=== PATIENT | male | born 1950 | race American Indian/Alaskan Native ===

== ENCOUNTER 2016-05-05 16:36 | Inpatient (IN) | payer MEDICARE ==
--- NOTE | 2016-05-05 23:36 | Cat Scan Report ---
FINAL REPORT PROCEDURE: CT HEAD/BRAIN WO CON TECHNIQUE: Computerized tomography of the head was performed without contrast material. HISTORY: GLF COMPARISON: No prior studies are available for comparison. FINDINGS: Skull and scalp: Normal. Paranasal sinuses: Normal. Ventricles and subarachnoid spaces: There is mild age-appropriate central and cortical atrophy. There is no hydrocephalus or asymmetry.. Cerebrum: No evidence of hemorrhage, acute infarction or mass. There is an old lacunar infarct defect in the right thalamus. Cerebellum and brainstem: No evidence of hemorrhage, acute infarction or mass. There is an old lacunar infarct defect in the the socorro. Vasculature: There is calcified plaque in the cavernous portions of the internal carotid arteries.. Comments: None. IMPRESSION: There are chronic changes as described. There is no skull fracture or hemorrhage.
--- NOTE | 2016-05-06 01:29 | XRay Report ---
FINAL REPORT PROCEDURE: XR ANKLE 3 RT TECHNIQUE: RIGHT ankle radiographs, AP, lateral, and oblique views. CPT 81794 HISTORY: fall COMPARISON: No prior studies are available for comparison. FINDINGS: Fracture (s) and/or Dislocation(s): None. Alignment: Normal. Joint space(s): There is moderate degenerative arthrosis of the tibiotalar joint. The ankle mortise is intact. There has been internal fixation of the talocalcaneal joint which is fused. Hardware is intact. Soft tissues: There is diffuse vascular calcification. There is no soft tissue swelling or mass.. Bone mineralization: There is generalized osteopenia.. Foreign bodies: None. Calcaneal spurring: None. IMPRESSION: There is no fracture. There is moderate degenerative arthrosis of the tibiotalar joint. The ankle mortise is intact. There has been internal fixation of the talocalcaneal joint which is fused. Hardware is intact. There is diffuse vascular calcification. There is no soft tissue swelling or mass.. There is generalized osteopenia..
[2016-05-06 01:34] LABS: Basophils % (Auto) 0.7 % (0.0-1.8); Eosinophils % (Auto) 0.8 % (0.0-4.3); Hematocrit 28.9 % (35.5-45.6); Hemoglobin 9.5 gm/dl (11.8-15.2); Mean Corpuscular HGB Conc 33 % (32-34); Mean Corpuscular Hemoglobin 28 pg (28-32); Mean Corpuscular Volume 86 fl (84-94); Platelet Count 163 K/mm3 (140-440); Red Blood Count 3.38 M/mm3 (3.65-5.03); Red Cell Distribution Width 19.9 % (13.2-15.2); White Blood Count 3.2 K/mm3 (4.5-11.0)
[2016-05-06 01:46] LABS: BUN/Creatinine Ratio 4.54; Calcium 10.2 mg/dL (8.4-10.2); Chloride 95.7 mmol/L (98-107); Potassium 3.6 mmol/L (3.6-5.0)
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
--- NOTE | 2016-05-06 10:14 | Admit Criteria Form ---
Admission Criteria Documentation: MUSCULOSKELETAL DISEASE GRG Clinical Indications for Admission to Inpatient Care (Place 'X' for any and all applicable criteria): Hospital admission is needed for appropriate care of the patient because of ANY ONE of the following: [X ]I. Fracture, dislocation, or other musculoskeletal injury requiring inpatient care(medical) as indicated by ANY ONE of the following(4)(5)(6)(7) [ ]a) Vertebral fracture requiring observation for instability or neurologic compromise (8) [ ]b) Compartment syndrome (proven or cannot be ruled out during observation level of care) (9) [ ]c) Limb-threatening injury [ ]d) Major injury requiring inpatient stabilization such as traction initiation or external fixation before internal fixation or closure of complex or open fracture [ ]e) Major injury requiring inpatient treatment after emergency or observation level care (as appropriate) [X ]f) Severe pain requiring acute inpatient management [ ]II. Newly diagnosed or suspected bone, joint, or orthopedic device infection (e.g., osteomyelitis, septic arthritis) needing ANY ONE of the following(1)(2)(3) [ ]a) IV antibiotics that cannot be initiated in other than inpatient setting (e.g., patient too unstable or home infusion not available) [ ]b) Device removal or replacement [ ]c) Bone or soft tissue debridement [ ]d) Joint drainage (drain placement or repetitive aspirations) [ ]III. Severe rheumatologic disease (e.g., systemic lupus erythematosus, rheumatoid arthritis) with complications or comorbidities (Also use Optimal Recovery Care Criteria or General Recovery Criteria as appropriate on the basis of predominant condition), including ANY ONE of the following(10 )(11)(12)(13) [ ]a) Severe infection (e.g., COPYMAN infection, sepsis) (14) [ ]b) Respiratory complications, including ANY ONE of the following: [ ]i) Pleural effusion with respiratory compromise [ ]ii) Pulmonary hypertension with congestive failure [ ]iii) Respiratory failure [ ]iv) Pulmonary hemorrhage (15) [ ]c) Hematologic disease, including ANY ONE of the following: [ ]i) Coagulopathy with bleeding [ ]ii) Thrombosis with hypercoagulable state [ ]iii) Thrombotic thrombocytopenic purpura [ ]d) Cerebritis with seizures, psychosis, or other severe abnormalities [ ]e) Vertebral destruction with monitoring needed for cervical myelopathy& possible respiratory compromise [ ]f) Exacerbation that requires inpatient treatment (e.g., intravenous immunosuppression) (16) [ ]g) Acute renal failure [ ]IV. Severe vasculitis with complications or comorbidities (Also use Optimal Recovery Care Criteria or General Recovery Criteria as appropriate on the basis of predominant condition), including ANY ONE of the following(11)(12)(17)(18)(19)(20) [ ]a) COPYMAN vasculitis with seizures, psychosis, or other severe abnormalities (22) [ ]b) Renal failure (16) [ ]c) Pulmonary hemorrhage (15) [ ]d) Cerebral infarction [ ]e) Gastrointestinal ischemia [ ]f) Gangrene or threatened amputation [ ]g) Exacerbation that requires inpatient treatment (e.g., intravenous immunosuppression) (19)(21) [ ]V. Severe myopathy as indicated by ANY ONE of the following (28)(29) [ ]a) New onset of airway compromise or inability to swallow [ ]b) Respiratory deterioration with observation needed for impending respiratory failure [ ]c) Exacerbation that requires inpatient treatment (e.g., intravenous immunosuppression) [ ]. Severe gout (crystal arthropathy) as indicated by ANY ONE of the following (23)(24) [ ]a) Severe pain requiring acute inpatient management [ ]b) Exacerbation that requires inpatient treatment (e.g., intravenous treatment) [ ]VII.Rhabdomyolysis and ANY ONE of the following (25)(26)(27) [ ]a) Acute renal failure [ ]b) Need for intravenous hydration after emergency or observation level care (as appropriate) [ ]c) Inability to maintain oral hydration [ ]d) Change in mental status [ ]e) Electrolyte abnormality that remains after emergency or observation level care (as appropriate) [ ]VIII Post amputation complication, as indicated by ANY ONE of the following [ ]a) Infection [ ]b) Dehiscence [ ]c) Myodesis failure [ ]IX. Severe pain requiring acute inpatient management as indicated by ALL of the following (30)(31)(32) [ ]a) Continuous or frequent (e.g., every 2 to 4 hrs) parenteral analgesics required [A] [ ]b) Rapid improvement expected from treatment or acute intervention ( e.g., surgery, anesthesia procedure[B] [ ]X. Musculoskeletal Disease and ALL of the following: [ ]a) Symptom or finding for which emergency and observation care have failed or are not considered appropriate (Use General Criteria: Observation Care as appropriate) [ ]b) Presence of ANY ONE of the following [ ]i) A General Admission Criteria [ ]ii) A Pediatric General Admission Criteria The original [facility] content created by [facility] has been revised. The portions of the content which have been revised are identified through the use of italic text or in bold, and [facility] has neither reviewed nor approved the modified material. All other unmodified content is copyright [facility]. Please see references footnoted in the original [facility] edition 2016 Admission Criteria Met: Yes
--- NOTE | 2016-05-06 11:12 | Cat Scan Report ---
CT LUMBAR SPINE WITHOUT CONTRAST History: Back pain, lytic lesions. Technique: Helical CT with sagittal and coronal reformatted images. Findings: No comparison. The bony structures have a mottled and demineralized appearance. This appears to represent osteoporosis. There are scattered lytic-appearing lesions measuring just a few millimeters. This could be secondary to severe bone demineralization. Multiple myeloma could also be considered. Moderate Schmorl's nodes are noted along the superior endplates of L2, L3 and L4. There is irregularity along the anterior, inferior L2 vertebral body which overall appears chronic. This may represent a chronic or healing fracture. There is mild diffuse facet arthropathy. Although intraspinal contents is poorly evaluated on CT, no high-grade central canal stenosis or epidural process is appreciated. Impression: Osteoporosis. Degenerative findings as described above. There are scattered lucent lesions in the lumbar region. This may be secondary to severe bone demineralization and not multiple myeloma. Please correlate with the patient's history. Chronic appearing irregularity along the inferior endplate of L2. No acute process is noted.
--- NOTE | 2016-05-06 15:06 | History and Physical Report ---
History of Present Illness Date of examination: 05/06/16 Date of admission: 05/06/16 09:55 History of present illness: Patient is 66-year-old male with history of hypertension, end-stage renal disease on hemodialysis, diabetes, hyperparathyroidism, chronic back pain who presents today after falling yesterday morning going into dialysis. Patient states he walks with a cane and walker and he felt weak in his knees and his cane broke and then he fell. Patient was admitted last month at [facility] for his syncopal episodes and found to have some abnormalities and lytic lesions to his spine. Patient sent here by his staff technologist for admission and workup of his lumbar spinal lesions. Patient states he cannot take tramadol or narcotics because they give him severe constipation. Patient was on gabapentin but he states it doesn't work and he quit taking it Past History Past Medical History: diabetes, ESRD, hypertension Medications and Allergies Allergies Allergy/AdvReac Type Severity Reaction Status Date / Time amoxicillin Allergy Swelling Verified 05/05/16 17:43 Penicillins Allergy Swelling Verified 05/05/16 17:43 Review of Systems Constitutional: fatigue, weakness Exam - Constitutional Vitals: Temp Pulse Resp BP Pulse Ox 98.2 F 66 11 L 131/62 97 05/05/16 22:30 05/06/16 11:00 05/06/16 11:00 05/06/16 11:00 05/06/16 11:00 General appearance: Present: no acute distress - EENT Eyes: Present: PERRL, EOM intact ENT: hearing intact, clear oral mucosa - Neck Neck: Present: supple, normal ROM - Respiratory Respiratory: bilateral: CTA - Cardiovascular Rhythm: regular Heart Sounds: Present: S1 & S2 - Extremities Extremities: no ischemia, No edema - Abdominal General gastrointestinal: Present: soft, non-tender, non-distended, normal bowel sounds - Psychiatric Psychiatric: appropriate mood/affect, intact judgment & insight - Neurologic Neurologic: CNII-XII intact Results - Labs CBC & Chem 7: 05/06/16 00:59 05/06/16 00:59 Labs: Laboratory Last Values WBC 3.2 K/mm3 (4.5-11.0) L 05/06/16 00:59 RBC 3.38 M/mm3 (3.65-5.03) L 05/06/16 00:59 Hgb 9.5 gm/dl (11.8-15.2) L 05/06/16 00:59 Hct 28.9 % (35.5-45.6) L 05/06/16 00:59 MCV 86 fl (84-94) 05/06/16 00:59 MCH 28 pg (28-32) 05/06/16 00:59 MCHC 33 % (32-34) 05/06/16 00:59 RDW 19.9 % (13.2-15.2) H 05/06/16 00:59 Plt Count 163 K/mm3 (140-440) 05/06/16 00:59 Lymph % (Auto) 37.9 % (13.4-35.0) H 05/06/16 00:59 [place] % (Auto) 7.7 % (0.0-7.3) H 05/06/16 00:59 Eos % (Auto) 0.8 % (0.0-4.3) 05/06/16 00:59 Baso % (Auto) 0.7 % (0.0-1.8) 05/06/16 00:59 Lymph # 1.2 K/mm3 (1.2-5.4) 05/06/16 00:59 [place] # 0.2 K/mm3 (0.0-0.8) 05/06/16 00:59 Eos # 0.0 K/mm3 (0.0-0.4) 05/06/16 00:59 Baso # 0.0 K/mm3 (0.0-0.1) 05/06/16 00:59 Seg Neutrophils % 52.9 % (40.0-70.0) 05/06/16 00:59 Seg Neutrophils # 1.7 K/mm3 (1.8-7.7) L 05/06/16 00:59 Sodium 139 mmol/L (137-145) 05/06/16 00:59 Potassium 3.6 mmol/L (3.6-5.0) 05/06/16 00:59 Chloride 95.7 mmol/L (98-107) L 05/06/16 00:59 Carbon Dioxide 25 mmol/L (22-30) 05/06/16 00:59 Anion Gap 22 mmol/L 05/06/16 00:59 BUN 20 mg/dL (9-20) 05/06/16 00:59 Creatinine 4.4 mg/dL (0.8-1.5) H 05/06/16 00:59 Estimated GFR 16 ml/min 05/06/16 00:59 BUN/Creatinine Ratio 4.54 % 05/06/16 00:59 Glucose 91 mg/dL (75-100) 05/06/16 00:59 Calcium 10.2 mg/dL (8.4-10.2) 05/06/16 00:59 Assessment and Plan - Patient Problems (1) ESRD (end stage renal disease) Current Visit: Yes Status: Acute Plan to address problem: Continue hemodialysis per nephrology (2) Hypertension Current Visit: Yes Status: Acute Qualifiers: Hypertension type: H Plan to address problem: Blood pressure well controlled. Patient couldn't tell me which blood pressure meds he was on. We'll consult with his personal staff technologist (3) Diabetes type 2, uncontrolled Current Visit: Yes Status: Acute Qualifiers: Diabetes mellitus complication status: D Diabetes mellitus complication detail: D Diabetic retinopathy severity: D Diabetes mellitus macular edema: D Diabetes mellitus skilled nursing insulin use: D Chronic kidney disease stage: C Plan to address problem: Accu-Cheks, sliding scale insulin, hemoglobin A1c (4) Abnormal CT scan, lumbar spine Current Visit: Yes Status: Acute Plan to address problem: Patient was told by his [employer] physician that he had some lytic lesions in his lumbar spine. Patient state that he was told that it was not cancerous
[2016-05-06] MEDS ORDERED: APRESOLINE IV PRN (22:10)
[2016-05-06] MEDS ORDERED: REGLAN PO PRN (22:10)
[2016-05-06] MEDS: TYLENOL PO PRN (22:40)
--- NOTE | 2016-05-07 01:18 | Consultation ---
REASON FOR CONSULTATION: Renal failure. HISTORY OF PRESENT ILLNESS: This 66-year-old -[place] male with end-stage renal disease, diabetes, hypertension, chronic back pain, getting worse for the past 3 months per patient who was brought to the Emergency Room for having frequent falls and severe back pain. The patient goes to [facility] on Tuesday, Tuesday, and Tuesday. History of end-stage renal disease on dialysis for the past 8-9 years. The patient reports that his back pain is getting worse for the past 3 months. He was recently admitted to [facility] of syncopal episodes and was noted to have lytic lesions in the lumbar spine. The patient was reported to be unable to take care of himself and needing assisted living or snf care facility. Discussed with Dr. Christie, the ER physician about the patient's medical problems and further workup and placement. The patient was evaluated in the Emergency Room around 9:45 a.m. this morning. PAST MEDICAL HISTORY: Hypertension, diabetes, end-stage renal disease, CVA, chronic back pain, frequent falls. PERSONAL HISTORY: Former smoker. No history of alcohol or drug abuse. ALLERGIES: Amoxicillin and penicillins. REVIEW OF SYSTEMS: The patient denies fever or chills. Denies difficulty swallowing. Appetite poor. Has intermittent nausea. The patient complains of severe lower back pain and pain radiates towards the midportion of the abdomen. Denies GI bleeding. The patient reports that he has a problem walking. Yesterday, he was walking with a cane, which broke and then he fell down. He states that he cannot take tramadol or any other narcotics because of severe constipation. PHYSICAL EXAMINATION: GENERAL: The patient is alert, oriented, chronically ill-looking male, not in acute distress. VITAL SIGNS: Blood pressure 132/68, pulse 75, afebrile. HEENT: Conjunctivae pale. Oral mucosa and tongue are dry. Lips noncyanotic. NECK: No JVD. No thyroid enlargement. LUNGS: Clear. HEART: S1, S2 regular. A 2/6 systolic murmur along the left sternal border. ABDOMEN: Soft, bowel sounds present, nontender. No masses palpable. EXTREMITIES: 1+ edema around the ankles. LABORATORY DATA: WBC 3.2, hemoglobin 9.5, hematocrit 28.9, platelets 163. Sodium 139, potassium 3.6, chloride 95, CO2 25, BUN 20, creatinine 4.4, glucose 91, calcium 10.2. ASSESSMENT AND PLAN: 1. End-stage renal disease. Hemodialysis on Tuesday, Tuesday, and Tuesday. 2. Back pain. Reviewed CT scan of the lumbar spine with Dr. Christie ER physician, which showed multiple lytic lesions. CT scan of the head had no acute findings. 3. Anemia and chronic kidney disease. 4. Secondary hyperparathyroidism. 5. Severe lower back pain. 6. Type 2 diabetes. 7. Hypertension. 8. Frequent falls. Hemodialysis on Tuesday, Tuesday, and Tuesday. The patient to have further evaluation for the lytic lesions in the lumbar spine. Follow up on phosphorus and PTH levels. The patient needs placement in a snf facility. JOB# [id number] LUIGI/THUY
[2016-05-07 06:26] LABS: Basophils % (Auto) 0.3 % (0.0-1.8); Eosinophils % (Auto) 1.4 % (0.0-4.3); Hematocrit 22.1 % (35.5-45.6); Hemoglobin 7.3 gm/dl (11.8-15.2); Mean Corpuscular HGB Conc 33 % (32-34); Mean Corpuscular Hemoglobin 28 pg (28-32); Mean Corpuscular Volume 86 fl (84-94); Platelet Count 146 K/mm3 (140-440); Red Blood Count 2.59 M/mm3 (3.65-5.03); White Blood Count 2.5 K/mm3 (4.5-11.0)
[2016-05-07 06:29] LABS: Red Cell Distribution Width 20.4 % (13.2-15.2)
[2016-05-07 06:49] LABS: Albumin 3.7 g/dL (3.9-5); Albumin/Globulin Ratio 1.4 %; BUN/Creatinine Ratio 5.55; Bilirubin,Total 0.3 mg/dL (0.1-1.2); Calcium 8.9 mg/dL (8.4-10.2); Chloride 100.2 mmol/L (98-107); Total Protein 6.4 g/dL (6.3-8.2)
[2016-05-07 06:54] LABS: Potassium 4.4 mmol/L (3.6-5.0)
--- NOTE | 2016-05-07 09:48 | Event Note ---
Date: 05/07/16 Ortho consult dictated Rec Neuro consult/ Rehab, bracing if left knee/walker
--- NOTE | 2016-05-07 10:13 | Consultation ---
REASON FOR CONSULTATION: Abnormal lumbar spine x-rays, leg weakness, left side. HISTORY OF PRESENT ILLNESS: This is a 66-year-old man, diabetic, had ongoing low back pain and is being followed at [facility]. He had an epidural injection approximately 4-6 weeks ago. During this time, he also developed leg weakness. Apparently, he fell the other day as he was coming out of dialysis because his left leg \\"gave out.\\" He was admitted for pain management. Orthopedic consultation requested because of the abnormal lumbar spine CT and leg weakness, left side. He is known with diabetic. He complains of numbness along the right foot, lower third, and his back pain is minimal. He denies any bowel or bladder symptoms. He is also known with end-stage renal disease, on dialysis. Complaints of visual complaints, especially looking at bright lights, both eyes. PHYSICAL EXAMINATION: GENERAL: Shows a fairly built male to his age, alert, oriented x 3. VITAL SIGNS: Appeared stable. EXTREMITIES: He has mild quad atrophy of both right and left side with quad weakness involving the left, which is grade 4-grade 5, right side is grade 5. No calf pain or tenderness bilaterally. He has numbness and paresthesia involving the lower third of the left leg with mild weakness involving the anterior tibial, EHL, and peroneal. The knee reflexes are grade 1, ankle flexes 0-1 left, 1 right side. Foot warm to palpation. Pulses palpated faint. IMAGING: CT scan of the lumbar spine shows spondylitic changes. There are lytic lesions into the vertebral bodies, appeared to be schmorl nodules and appeared to be from degenerative changes. There is calcification of the interspinous ligaments, lower lumbar spine. No evidence of spondylolisthesis. LABORATORY EVALUATION: Shows calcium levels unremarkable and albumin-globulin ratio within normal limits. DIAGNOSES: 1. Left leg weakness, ? peripheral neuropathy versus peripheral nerve compression/radiculopathy, left sided. 2. End-stage renal disease. 3. Diabetes mellitus. RECOMMENDATIONS: 1. Medical management of his comorbid medical conditions, that is diabetes and end-stage renal disease. 2. Recommended Neurology consultation to evaluate for any peripheral neuropathy versus radiculopathy. 3. Continue with pain managemen 4 . Metabolic woek up/ myloma work up 5. Progressive ambulation. He may need an external support such as a walker and possibly a knee brace with drop knee lock to prevent the knee from buckling as he ambulates. The patient may be discharged with outpatient ambulation following these work-ups and he could be followed up in the office or at the [facility] where he is being cared for. I thank you for this consult. JOB# [id number] ERVIN/THUY LOZA
--- NOTE | 2016-05-07 10:44 | Progress Note ---
Assessment and Plan Assessment and plan: 1. ESRD. Continue hemodialysis per nephrology. 2. Hypertension. Continue antihypertensives medications. 3. Diabetes mellitus type II. Continue Accu-Cheks and sliding scale regular S1. 4. Abnormal CT scan/lytic lesions. Patient was told by his [place] physician that he had some lytic lesions in his lumbar spine. Patient state that he was told that it was not cancerous History Interval history: Patient reports lower extremity weakness that is not new for him. He denies any chest pain or shortness of breath. Hospitalist Physical - Constitutional Vitals: Temp Pulse Resp BP Pulse Ox 98.3 F 60 16 160/77 99 05/07/16 07:53 05/07/16 07:53 05/07/16 07:53 05/07/16 07:53 05/07/16 07:53 General appearance: Present: no acute distress - EENT Eyes: Present: PERRL, EOM intact ENT: hearing intact, clear oral mucosa, dentition normal - Neck Neck: Present: supple, normal ROM - Respiratory Respiratory effort: normal Respiratory: bilateral: CTA - Cardiovascular Rhythm: regular Heart Sounds: Present: S1 & S2. Absent: gallop, rub - Extremities Extremities: no ischemia, No edema, Full ROM - Abdominal General gastrointestinal: soft, non-tender, non-distended, normal bowel sounds - Integumentary Integumentary: Present: clear, warm, dry - Neurologic Neurologic: CNII-XII intact, moves all extremities Results - Labs CBC & Chem 7: 05/07/16 05:19 05/07/16 05:19 Labs: Laboratory Last Values WBC 2.5 K/mm3 (4.5-11.0) L 05/07/16 05:19 RBC 2.59 M/mm3 (3.65-5.03) L 05/07/16 05:19 Hgb 7.3 gm/dl (11.8-15.2) L 05/07/16 05:19 Hct 22.1 % (35.5-45.6) L D 05/07/16 05:19 MCV 86 fl (84-94) 05/07/16 05:19 MCH 28 pg (28-32) 05/07/16 05:19 MCHC 33 % (32-34) 05/07/16 05:19 RDW 20.4 % (13.2-15.2) H 05/07/16 05:19 Plt Count 146 K/mm3 (140-440) 05/07/16 05:19 Lymph % (Auto) 37.0 % (13.4-35.0) H 05/07/16 05:19 [place] % (Auto) 10.2 % (0.0-7.3) H 05/07/16 05:19 Eos % (Auto) 1.4 % (0.0-4.3) 05/07/16 05:19 Baso % (Auto) 0.3 % (0.0-1.8) 05/07/16 05:19 Lymph # 0.9 K/mm3 (1.2-5.4) L 05/07/16 05:19 [place] # 0.3 K/mm3 (0.0-0.8) 05/07/16 05:19 Eos # 0.0 K/mm3 (0.0-0.4) 05/07/16 05:19 Baso # 0.0 K/mm3 (0.0-0.1) 05/07/16 05:19 Seg Neutrophils % 51.1 % (40.0-70.0) 05/07/16 05:19 Seg Neutrophils # 1.3 K/mm3 (1.8-7.7) L 05/07/16 05:19 Sodium 143 mmol/L (137-145) 05/07/16 05:19 Potassium 4.4 mmol/L (3.6-5.0) D 05/07/16 05:19 Chloride 100.2 mmol/L (98-107) 05/07/16 05:19 Carbon Dioxide 24 mmol/L (22-30) 05/07/16 05:19 Anion Gap 23 mmol/L 05/07/16 05:19 BUN 40 mg/dL (9-20) H 05/07/16 05:19 Creatinine 7.2 mg/dL (0.8-1.5) H D 05/07/16 05:19 Estimated GFR 9 ml/min 05/07/16 05:19 BUN/Creatinine Ratio 5.55 % 05/07/16 05:19 Glucose 99 mg/dL (75-100) 05/07/16 05:19 POC Glucose 169 (70-105) H 05/06/16 22:53 Calcium 8.9 mg/dL (8.4-10.2) 05/07/16 05:19 Total Bilirubin 0.3 mg/dL (0.1-1.2) 05/07/16 05:19 AST 9 units/L (5-40) 05/07/16 05:19 ALT 5 units/L (7-56) L 05/07/16 05:19 Alkaline Phosphatase 188 units/L (35-129) H 05/07/16 05:19 Total Protein 6.4 g/dL (6.3-8.2) 05/07/16 05:19 Albumin 3.7 g/dL (3.9-5) L 05/07/16 05:19 Albumin/Globulin Ratio 1.4 % 05/07/16 05:19
[2016-05-07] MEDS: PEPCID PO SCH ×2 (10:50→23:01)
--- NOTE | 2016-05-07 12:53 | Consultation ---
History of Present Illness - Reason for Consult Consult date: 05/07/16 end stage renal disease Requesting physician: EULOGIO MONROE - History of Present Illness Patient is 66-year-old male with history of hypertension, end-stage renal disease on hemodialysis, diabetes, hyperparathyroidism, chronic back pain who presents today after falling yesterday morning going into dialysis. Patient states he walks with a cane and walker and he felt weak in his knees and his cane broke and then he fell. Patient was admitted last month at [facility] for his syncopal episodes and found to have some abnormalities and lytic lesions to his spine. 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 Patient states he cannot take tramadol or narcotics because they give him severe constipation. Patient was on gabapentin but he states it doesn't work and he quit taking it Past History Past Medical History: diabetes, ESRD, hypertension Medications and Allergies Allergies Allergy/AdvReac Type Severity Reaction Status Date / Time amoxicillin Allergy Swelling Verified 05/05/16 17:43 Penicillins Allergy Swelling Verified 05/05/16 17:43 Review of Systems Constitutional: fatigue, weakness Past History Past Medical History: diabetes, dialysis, ESRD, hypertension, renal failure Past Surgical History: Other (av access placement) Social history: full code. denies: prescription drug abuse, IV drug use Family history: hypertension Medications and Allergies Allergies Allergy/AdvReac Type Severity Reaction Status Date / Time amoxicillin Allergy Swelling Verified 05/05/16 17:43 Penicillins Allergy Swelling Verified 05/05/16 17:43 Active Meds: Active Medications Acetaminophen (Tylenol) 650 mg PO Q4H PRN PRN Reason: Pain MILD(1-3)/Fever >100.5/RAMSEY Last Admin: 05/06/16 22:40 Dose: 650 mg Acetaminophen/Hydrocodone Bitart (Cheraw 5/325) 2 each PO Q6H PRN PRN Reason: Pain, Moderate (4-6) Famotidine (Pepcid) 10 mg PO BID TANNA Last Admin: 05/07/16 10:50 Dose: 10 mg Hydralazine HCl (Apresoline) 5 mg IV Q30MIN PRN PRN Reason: HTN SYS>180 AND MANNIE>100 Metoclopramide HCl (Reglan) 10 mg PO Q6H PRN PRN Reason: Nausea And Vomiting Review of Systems Constitutional: fatigue, weakness, malaise Musculoskeletal: frequent falls Exam - Vital Signs Vital signs: Vital Signs Temp Pulse Resp BP Pulse Ox 98.3 F 70 16 123/66 100 05/05/16 17:43 05/05/16 17:43 05/05/16 17:43 05/05/16 17:43 05/05/16 17:43 - Physical Exam Narrative exam: General appearance: Present: no acute distress - EENT Eyes: Present: PERRL, EOM intact ENT: hearing intact, clear oral mucosa - Neck Neck: Present: supple, normal ROM - Respiratory Respiratory: bilateral: CTA - Cardiovascular Rhythm: regular Heart Sounds: Present: S1 & S2 - Extremities Extremities: no ischemia, No edema - Abdominal General gastrointestinal: Present: soft, non-tender, non-distended, normal bowel sounds - Psychiatric Psychiatric: appropriate mood/affect, intact judgment & insight - Neurologic Neurologic: CNII-XII intact Results - Lab Results 05/07/16 05:19 05/07/16 05:19 Most recent lab results Calcium 8.9 mg/dL (8.4-10.2) 05/07/16 05:19 Assessment and Plan Impression: * esrd * lytic lesion--work up for myeloma/prostate ca etc * falls * htn * anemia in esrd * dm type 2 Plan: * spep, immunofixation, psa * hd q mwf * epogen with dialysis * prn prbcs * uf as tolerated * strict i/os * avoid nephrotoxins * daily lytes
[2016-05-07] MEDS ORDERED: NACL 0.9% 1000 ML 100 ML IV PRN (12:54)
[2016-05-07] MEDS: TYLENOL PO PRN ×2 (16:53→23:04)
[2016-05-07] MEDS: ISOPTO TEARS 0.5% OU PRN (23:01)
--- NOTE | 2016-05-08 08:12 | Progress Note ---
Assessment and Plan Impression: * esrd * lytic lesion--work up for myeloma/prostate ca etc--demineralization per ct * falls * htn * anemia in esrd * dm type 2 Plan: * spep, immunofixation, psa pending * rehab vs sub acute * pt to eval and treat * hd q mwf * epogen with dialysis * prn prbcs * uf as tolerated * strict i/os * avoid nephrotoxins * daily lytes Subjective Date of service: 05/08/16 Principal diagnosis: esrd Interval history: resting well inbed today Objective - Exam Narrative Exam: General appearance: Present: no acute distress - EENT Eyes: Present: PERRL, EOM intact ENT: hearing intact, clear oral mucosa - Neck Neck: Present: supple, normal ROM - Respiratory Respiratory: bilateral: CTA - Cardiovascular Rhythm: regular Heart Sounds: Present: S1 & S2 - Extremities Extremities: no ischemia, No edema - Abdominal General gastrointestinal: Present: soft, non-tender, non-distended, normal bowel sounds - Psychiatric Psychiatric: appropriate mood/affect, intact judgment & insight - Neurologic Neurologic: CNII-XII intact - Vital Signs Vital signs: Vital Signs - 12hr 05/07/16 05/07/16 05/08/16 22:00 23:04 00:34 Temperature 98.8 F Pulse Rate [ 84 68 Right Radial] Respiratory 20 20 Rate Blood Pressure 153/67 [Right Arm] O2 Sat by Pulse 100 Oximetry - Lab 05/07/16 05:19 05/07/16 05:19 Most recent lab results Calcium 8.9 mg/dL (8.4-10.2) 05/07/16 05:19
--- NOTE | 2016-05-08 11:07 | Progress Note ---
Assessment and Plan Assessment and plan: 1. ESRD. Continue hemodialysis per nephrology. 2. Hypertension. Continue antihypertensives medications. 3. Diabetes mellitus type II. Continue Accu-Cheks and sliding scale regular regular insulin. 4. Abnormal CT scan/lytic lesions. Patient was told by his [place] physician that he had some lytic lesions in his lumbar spine. Patient state that he was told that it was not cancerous. Work up for myeloma/prostate ca etc-- demineralization per ct--daughter states secondary to ESRD. Nuclear bone scan Tuesday History Interval history: Patient reports lower extremity weakness that is not new for him. He denies any chest pain or shortness of breath. Hospitalist Physical - Constitutional Vitals: Temp Pulse Resp BP Pulse Ox 98.8 F 68 20 153/67 100 05/08/16 00:34 05/08/16 00:34 05/08/16 00:34 05/08/16 00:34 05/08/16 00:34 General appearance: Present: no acute distress - EENT Eyes: Present: PERRL, EOM intact ENT: hearing intact, clear oral mucosa, dentition normal - Neck Neck: Present: supple, normal ROM - Respiratory Respiratory effort: normal Respiratory: bilateral: CTA - Cardiovascular Rhythm: regular Heart Sounds: Present: S1 & S2. Absent: gallop, rub - Extremities Extremities: no ischemia, No edema, Full ROM - Abdominal General gastrointestinal: soft, non-tender, non-distended, normal bowel sounds - Integumentary Integumentary: Present: clear, warm, dry - Neurologic Neurologic: CNII-XII intact, moves all extremities Results - Labs CBC & Chem 7: 05/07/16 05:19 05/07/16 05:19 Labs: Laboratory Last Values WBC 2.5 K/mm3 (4.5-11.0) L 05/07/16 05:19 RBC 2.59 M/mm3 (3.65-5.03) L 05/07/16 05:19 Hgb 7.3 gm/dl (11.8-15.2) L 05/07/16 05:19 Hct 22.1 % (35.5-45.6) L D 05/07/16 05:19 MCV 86 fl (84-94) 05/07/16 05:19 MCH 28 pg (28-32) 05/07/16 05:19 MCHC 33 % (32-34) 05/07/16 05:19 RDW 20.4 % (13.2-15.2) H 05/07/16 05:19 Plt Count 146 K/mm3 (140-440) 05/07/16 05:19 Lymph % (Auto) 37.0 % (13.4-35.0) H 05/07/16 05:19 [place] % (Auto) 10.2 % (0.0-7.3) H 05/07/16 05:19 Eos % (Auto) 1.4 % (0.0-4.3) 05/07/16 05:19 Baso % (Auto) 0.3 % (0.0-1.8) 05/07/16 05:19 Lymph # 0.9 K/mm3 (1.2-5.4) L 05/07/16 05:19 [place] # 0.3 K/mm3 (0.0-0.8) 05/07/16 05:19 Eos # 0.0 K/mm3 (0.0-0.4) 05/07/16 05:19 Baso # 0.0 K/mm3 (0.0-0.1) 05/07/16 05:19 Seg Neutrophils % 51.1 % (40.0-70.0) 05/07/16 05:19 Seg Neutrophils # 1.3 K/mm3 (1.8-7.7) L 05/07/16 05:19 Sodium 143 mmol/L (137-145) 05/07/16 05:19 Potassium 4.4 mmol/L (3.6-5.0) D 05/07/16 05:19 Chloride 100.2 mmol/L (98-107) 05/07/16 05:19 Carbon Dioxide 24 mmol/L (22-30) 05/07/16 05:19 Anion Gap 23 mmol/L 05/07/16 05:19 BUN 40 mg/dL (9-20) H 05/07/16 05:19 Creatinine 7.2 mg/dL (0.8-1.5) H D 05/07/16 05:19 Estimated GFR 9 ml/min 05/07/16 05:19 BUN/Creatinine Ratio 5.55 % 05/07/16 05:19 Glucose 99 mg/dL (75-100) 05/07/16 05:19 POC Glucose 112 (70-105) H 05/08/16 06:41 Calcium 8.9 mg/dL (8.4-10.2) 05/07/16 05:19 Total Bilirubin 0.3 mg/dL (0.1-1.2) 05/07/16 05:19 AST 9 units/L (5-40) 05/07/16 05:19 ALT 5 units/L (7-56) L 05/07/16 05:19 Alkaline Phosphatase 188 units/L (35-129) H 05/07/16 05:19 Total Protein 6.4 g/dL (6.3-8.2) 05/07/16 05:19 Albumin 3.7 g/dL (3.9-5) L 05/07/16 05:19 Albumin/Globulin Ratio 1.4 % 05/07/16 05:19
[2016-05-08] MEDS: PEPCID PO SCH ×2 (12:57→21:06)
[2016-05-08] MEDS: NORCO 5/325 PO PRN ×2 (13:08→20:19)
[2016-05-08 15:56] LABS: Hematocrit 24.7 % (35.5-45.6); Hemoglobin 8.2 gm/dl (11.8-15.2); Mean Corpuscular HGB Conc 33 % (32-34); Mean Corpuscular Hemoglobin 28 pg (28-32); Mean Corpuscular Volume 86 fl (84-94); Platelet Count 170 K/mm3 (140-440); Red Blood Count 2.89 M/mm3 (3.65-5.03)
[2016-05-08 16:06] LABS: Red Cell Distribution Width 20.1 % (13.2-15.2)
[2016-05-08 16:15] LABS: BUN/Creatinine Ratio 4.63; Calcium 9.1 mg/dL (8.4-10.2); Chloride 93.2 mmol/L (98-107)
[2016-05-08 16:48] LABS: Basophils % (Manual) 0 % (0.0-1.8); Blastocytes % (Manual) 0 %
[2016-05-08 16:49] LABS: Anisocytosis 1+; Ovalocytes 1+
[2016-05-08 16:50] LABS: Platelet Estimate Consistent w Auto; Poikilocytosis 1+; Schistocytes Few
[2016-05-08 16:52] LABS: Tear Drop Cells Few
[2016-05-08 16:54] LABS: Diff Status Complete
[2016-05-08] MEDS: SENOKOT PO SCH (21:06)
--- NOTE | 2016-05-09 07:52 | Progress Note ---
Assessment and Plan Impression: * esrd * lytic lesion--work up for myeloma/prostate ca etc--demineralization per ct * falls * htn * anemia in esrd * dm type 2 * hyperparathyroidism Plan: * spep, immunofixation, psa pending * rehab vs sub acute * pt to eval and treat * hd q mwf * epogen with dialysis * prn prbcs * uf as tolerated * strict i/os * avoid nephrotoxins * daily lytes Subjective Date of service: 05/09/16 Principal diagnosis: esrd Interval history: resting well inbed today Objective - Exam Narrative Exam: General appearance: Present: no acute distress - EENT Eyes: Present: PERRL, EOM intact ENT: hearing intact, clear oral mucosa - Neck Neck: Present: supple, normal ROM - Respiratory Respiratory: bilateral: CTA - Cardiovascular Rhythm: regular Heart Sounds: Present: S1 & S2 - Extremities Extremities: no ischemia, No edema - Abdominal General gastrointestinal: Present: soft, non-tender, non-distended, normal bowel sounds - Psychiatric Psychiatric: appropriate mood/affect, intact judgment & insight - Neurologic Neurologic: CNII-XII intact - Vital Signs Vital signs: Vital Signs - 12hr 05/08/16 05/08/16 05/09/16 20:19 20:21 00:00 Temperature 98.0 F Pulse Rate [ 76 Right Radial] Respiratory 18 18 20 Rate Blood Pressure 180/82 [Right Arm] O2 Sat by Pulse 100 Oximetry 05/09/16 04:00 Temperature 97.9 F Pulse Rate [ 65 Right Radial] Respiratory 20 Rate Blood Pressure 125/59 [Right Arm] O2 Sat by Pulse 99 Oximetry - Lab 05/08/16 14:50 05/08/16 14:55 Most recent lab results Calcium 9.1 mg/dL (8.4-10.2) 05/08/16 14:55
--- NOTE | 2016-05-09 11:11 | Progress Note ---
Assessment and Plan Assessment and plan: 1. ESRD. Continue hemodialysis per nephrology. 2. Hypertension. Continue antihypertensives medications. 3. Diabetes mellitus type II. Continue Accu-Cheks and sliding scale regular regular insulin. 4. Abnormal CT scan/lytic lesions. Patient was told by his [place] physician that he had some lytic lesions in his lumbar spine. Patient state that he was told that it was not cancerous. Work up for myeloma/prostate ca etc-- demineralization per ct--daughter states secondary to ESRD. SPEP, immunofixation and PSA studies pending. Nuclear bone scan Tuesday History Interval history: Patient states that he didn't sleep well last night. He denies any specific complaints. He denies any chest pain or shortness of breath. Hospitalist Physical - Constitutional Vitals: Temp Pulse Resp BP Pulse Ox 98.3 F 58 L 20 165/80 100 05/09/16 08:52 05/09/16 08:52 05/09/16 08:52 05/09/16 08:52 05/09/16 08:52 General appearance: Present: no acute distress - EENT Eyes: Present: PERRL, EOM intact ENT: hearing intact, clear oral mucosa, dentition normal - Neck Neck: Present: supple, normal ROM - Respiratory Respiratory effort: normal Respiratory: bilateral: CTA - Cardiovascular Rhythm: regular Heart Sounds: Present: S1 & S2. Absent: gallop, rub - Extremities Extremities: no ischemia, No edema, Full ROM - Abdominal General gastrointestinal: soft, non-tender, non-distended, normal bowel sounds - Integumentary Integumentary: Present: clear, warm, dry - Neurologic Neurologic: CNII-XII intact, moves all extremities Results - Labs CBC & Chem 7: 05/08/16 14:50 05/08/16 14:55 Labs: Laboratory Last Values WBC 3.0 K/mm3 (4.5-11.0) L 05/08/16 14:50 RBC 2.89 M/mm3 (3.65-5.03) L 05/08/16 14:50 Hgb 8.2 gm/dl (11.8-15.2) L 05/08/16 14:50 Hct 24.7 % (35.5-45.6) L 05/08/16 14:50 MCV 86 fl (84-94) 05/08/16 14:50 MCH 28 pg (28-32) 05/08/16 14:50 MCHC 33 % (32-34) 05/08/16 14:50 RDW 20.1 % (13.2-15.2) H 05/08/16 14:50 Plt Count 170 K/mm3 (140-440) 05/08/16 14:50 Lymph % (Auto) 37.0 % (13.4-35.0) H 05/07/16 05:19 [place] % (Auto) 10.2 % (0.0-7.3) H 05/07/16 05:19 Eos % (Auto) 1.4 % (0.0-4.3) 05/07/16 05:19 Baso % (Auto) 0.3 % (0.0-1.8) 05/07/16 05:19 Lymph # 0.9 K/mm3 (1.2-5.4) L 05/07/16 05:19 [place] # 0.3 K/mm3 (0.0-0.8) 05/07/16 05:19 Eos # 0.0 K/mm3 (0.0-0.4) 05/07/16 05:19 Baso # 0.0 K/mm3 (0.0-0.1) 05/07/16 05:19 Add Manual Diff Complete 05/08/16 14:50 Total Counted 100 05/08/16 14:50 Seg Neutrophils % 51.1 % (40.0-70.0) 05/07/16 05:19 Seg Neuts % (Manual) 68.0 % (40.0-70.0) 05/08/16 14:50 Band Neutrophils % 0 % 05/08/16 14:50 Lymphocytes % (Manual) 23.0 % (13.4-35.0) 05/08/16 14:50 Reactive Lymphs % (Man) 0 % 05/08/16 14:50 Monocytes % (Manual) 7.0 % (0.0-7.3) 05/08/16 14:50 Eosinophils % (Manual) 2.0 % (0.0-4.3) 05/08/16 14:50 Basophils % (Manual) 0 % (0.0-1.8) 05/08/16 14:50 Metamyelocytes % 0 % 05/08/16 14:50 Myelocytes % 0 % 05/08/16 14:50 Promyelocytes % 0 % 05/08/16 14:50 Blast Cells % 0 % 05/08/16 14:50 Nucleated RBC % 1.0 % (0.0-0.9) H 05/08/16 14:50 Seg Neutrophils # 1.3 K/mm3 (1.8-7.7) L 05/07/16 05:19 Seg Neutrophils # Man 2.0 K/mm3 (1.8-7.7) 05/08/16 14:50 Band Neutrophils # 0.0 K/mm3 05/08/16 14:50 Lymphocytes # (Manual) 0.7 K/mm3 (1.2-5.4) L 05/08/16 14:50 Abs React Lymphs (Man) 0.0 K/mm3 05/08/16 14:50 Monocytes # (Manual) 0.2 K/mm3 (0.0-0.8) 05/08/16 14:50 Eosinophils # (Manual) 0.1 K/mm3 (0.0-0.4) 05/08/16 14:50 Basophils # (Manual) 0.0 K/mm3 (0.0-0.1) 05/08/16 14:50 Metamyelocytes # 0.0 K/mm3 05/08/16 14:50 Myelocytes # 0.0 K/mm3 05/08/16 14:50 Promyelocytes # 0.0 K/mm3 05/08/16 14:50 Blast Cells # 0.0 K/mm3 05/08/16 14:50 WBC Morphology Not Reportable 05/08/16 14:50 Hypersegmented Neuts Not Reportable 05/08/16 14:50 Hyposegmented Neuts Not Reportable 05/08/16 14:50 Hypogranular Neuts Not Reportable 05/08/16 14:50 Smudge Cells Not Reportable 05/08/16 14:50 Toxic Granulation Not Reportable 05/08/16 14:50 Toxic Vacuolation Not Reportable 05/08/16 14:50 Dohle Bodies Not Reportable 05/08/16 14:50 Pelger-Huet Anomaly Not Reportable 05/08/16 14:50 Angel Rods Not Reportable 05/08/16 14:50 Platelet Estimate Consistent w auto 05/08/16 14:50 Clumped Platelets Not Reportable 05/08/16 14:50 Plt Clumps, EDTA Not Reportable 05/08/16 14:50 Large Platelets Not Reportable 05/08/16 14:50 Giant Platelets Not Reportable 05/08/16 14:50 Platelet Satelliting Not Reportable 05/08/16 14:50 Plt Morphology Comment Not Reportable 05/08/16 14:50 RBC Morphology Not Reportable 05/08/16 14:50 Dimorphic RBCs Yes 05/08/16 14:50 Polychromasia Not Reportable 05/08/16 14:50 Hypochromasia Not Reportable 05/08/16 14:50 Poikilocytosis 1+ 05/08/16 14:50 Anisocytosis 1+ 05/08/16 14:50 Microcytosis Not Reportable 05/08/16 14:50 Macrocytosis Not Reportable 05/08/16 14:50 Spherocytes Not Reportable 05/08/16 14:50 Pappenheimer Bodies Not Reportable 05/08/16 14:50 Sickle Cells Not Reportable 05/08/16 14:50 Target Cells Not Reportable 05/08/16 14:50 Tear Drop Cells Few 05/08/16 14:50 Ovalocytes 1+ 05/08/16 14:50 Helmet Cells Not Reportable 05/08/16 14:50 Garcia-Myton Bodies Not Reportable 05/08/16 14:50 [place] Rings Not Reportable 05/08/16 14:50 Mitzy Cells Not Reportable 05/08/16 14:50 Bite Cells Not Reportable 05/08/16 14:50 Crenated Cell Not Reportable 05/08/16 14:50 Elliptocytes Not Reportable 05/08/16 14:50 Acanthocytes (Spur) Not Reportable 05/08/16 14:50 Rouleaux Not Reportable 05/08/16 14:50 Hemoglobin C Crystals Not Reportable 05/08/16 14:50 Schistocytes Few 05/08/16 14:50 Malaria parasites Not Reportable 05/08/16 14:50 [place] Bodies Not Reportable 05/08/16 14:50 Hem Pathologist Commnt No 05/08/16 14:50 Sodium 135 mmol/L (137-145) L D 05/08/16 14:55 Potassium 4.0 mmol/L (3.6-5.0) 05/08/16 14:55 Chloride 93.2 mmol/L (98-107) L 05/08/16 14:55 Carbon Dioxide 25 mmol/L (22-30) 05/08/16 14:55 Anion Gap 21 mmol/L 05/08/16 14:55 BUN 32 mg/dL (9-20) H 05/08/16 14:55 Creatinine 6.9 mg/dL (0.8-1.5) H 05/08/16 14:55 Estimated GFR 10 ml/min 05/08/16 14:55 BUN/Creatinine Ratio 4.63 % 05/08/16 14:55 Glucose 148 mg/dL (75-100) H 05/08/16 14:55 POC Glucose 90 (70-105) 05/09/16 06:46 Calcium 9.1 mg/dL (8.4-10.2) 05/08/16 14:55 Total Bilirubin 0.3 mg/dL (0.1-1.2) 05/07/16 05:19 AST 9 units/L (5-40) 05/07/16 05:19 ALT 5 units/L (7-56) L 05/07/16 05:19 Alkaline Phosphatase 188 units/L (35-129) H 05/07/16 05:19 Total Protein 6.4 g/dL (6.3-8.2) 05/07/16 05:19 Albumin 3.7 g/dL (3.9-5) L 05/07/16 05:19 Albumin/Globulin Ratio 1.4 % 05/07/16 05:19 PTH Intact 1205 pg/mL (15-65) H 05/08/16 14:55
[2016-05-09] MEDS: PEPCID PO SCH ×3 (12:46→22:16)
[2016-05-09] MEDS: NORCO 5/325 PO PRN (12:46)
[2016-05-09] MEDS: SENSIPAR PO SCH (12:46)
[2016-05-09 14:34] LABS: Basophils % (Auto) 0.4 % (0.0-1.8); Eosinophils % (Auto) 0.9 % (0.0-4.3); Hematocrit 23.7 % (35.5-45.6); Mean Corpuscular HGB Conc 34 % (32-34); Mean Corpuscular Hemoglobin 29 pg (28-32); Mean Corpuscular Volume 87 fl (84-94); Platelet Count 167 K/mm3 (140-440); Red Blood Count 2.73 M/mm3 (3.65-5.03); White Blood Count 3.6 K/mm3 (4.5-11.0)
[2016-05-09 14:58] LABS: BUN/Creatinine Ratio 5.8; Calcium 9.2 mg/dL (8.4-10.2); Chloride 93.8 mmol/L (98-107); Potassium 4.2 mmol/L (3.6-5.0)
[2016-05-09 15:13] LABS: Red Cell Distribution Width 20.2 % (13.2-15.2)
[2016-05-09] MEDS: SENOKOT PO SCH ×2 (22:14→22:16)
[2016-05-10] MEDS: SENSIPAR PO SCH (09:48)
[2016-05-10] MEDS: PEPCID PO SCH ×2 (09:49→22:52)
--- NOTE | 2016-05-10 10:11 | Progress Note ---
Assessment and Plan End-stage renal disease patient is currently on maintenance hemodialysis on Tuesday schedule Anemia in end-stage renal disease with lytic lesions in the back please consider hematology consultation Secondary hyperparathyroidism to monitor phosphorus and PTH level which has been high in the outpatient setting History of multiple frequent falls unable to self-care needs physical therapy rehabilitation and possible placement Malnutrition risk is high please consider high protein diet Deconditioning weakness Accelerated uncontrolled hypertension-will start the patient on Coreg as well as minoxidil Chronic constipation currently on senna CT scan report reviewed showed evidence of severe demineralization it of T of felt to Hypertension goal systolic blood pressure under 140-150 Dry weight adjustment needs to be done Current access has been working well for dialysis My recommendations will be to consider Hematology consultation for lytic lesions in the back/also need to be evaluated for anemia which has been out of proportion Monitor analysis related labs PTH phosphorus CBC and chemistries An orthopedic evaluation will also be helpful as well Please address his home medications We'll continue to follow and make recommendations from renal standpoint Subjective Principal diagnosis: esrd Interval history: Patient was seen today for follow-up multiple renal related issues back pain is currently somewhat better. Patient is unable to take care of himself has had history of multiple falls chronic low back pain and many other health issues for which she was admitted to the hospital. Patient still has not seen any oncologist yet Objective - Vital Signs Vital signs: Vital Signs - 12hr 05/09/16 05/10/16 23:00 08:14 Temperature 97.0 F L 97.7 F Pulse Rate [ 62 56 L Right Radial] Respiratory 18 20 Rate Blood Pressure 180/86 184/88 [Right Arm] O2 Sat by Pulse 100 100 Oximetry - General Appearance General appearance: appears stated age EENT: mucous membranes moist Respiratory: Present: Clear to Ascultation Cardiology: regular (S1-S2 normal) Gastrointestinal: normal (soft nontender abdomen) Integumentary: other (dry skin no rashes) Neurologic: other (alert awake oriented) - Lab 05/09/16 14:24 05/09/16 14:24 Most recent lab results Calcium 9.2 mg/dL (8.4-10.2) 05/09/16 14:24
--- NOTE | 2016-05-10 10:20 | Progress Note ---
Assessment and Plan Assessment and plan: 1. ESRD. Continue hemodialysis per nephrology. 2. Hypertension. Continue antihypertensives medications. 3. Diabetes mellitus type II. Continue Accu-Cheks and sliding scale regular regular insulin. 4. Abnormal CT scan/lytic lesions. Patient was told by his [place] physician that he had some lytic lesions in his lumbar spine. Patient state that he was told that it was not cancerous. Work up for myeloma/prostate ca etc-- demineralization per ct--daughter states secondary to ESRD. SPEP, immunofixation and PSA studies pending. Nuclear bone scan today. History Interval history: No new complaints overnight. He denies any chest pain or shortness of breath. Hospitalist Physical - Constitutional Vitals: Temp Pulse Resp BP Pulse Ox 97.7 F 56 L 20 184/88 100 05/10/16 08:14 05/10/16 08:14 05/10/16 08:14 05/10/16 08:14 05/10/16 08:14 General appearance: Present: no acute distress - EENT Eyes: Present: PERRL, EOM intact ENT: hearing intact, clear oral mucosa, dentition normal - Neck Neck: Present: supple, normal ROM - Respiratory Respiratory effort: normal Respiratory: bilateral: CTA - Cardiovascular Rhythm: regular Heart Sounds: Present: S1 & S2. Absent: gallop, rub - Extremities Extremities: no ischemia, No edema, Full ROM - Abdominal General gastrointestinal: soft, non-tender, non-distended, normal bowel sounds - Integumentary Integumentary: Present: clear, warm, dry - Neurologic Neurologic: CNII-XII intact, moves all extremities Results - Labs CBC & Chem 7: 05/09/16 14:24 05/09/16 14:24 Labs: Laboratory Last Values WBC 3.6 K/mm3 (4.5-11.0) L 05/09/16 14:24 RBC 2.73 M/mm3 (3.65-5.03) L 05/09/16 14:24 Hgb 8.0 gm/dl (11.8-15.2) L 05/09/16 14:24 Hct 23.7 % (35.5-45.6) L 05/09/16 14:24 MCV 87 fl (84-94) 05/09/16 14:24 MCH 29 pg (28-32) 05/09/16 14:24 MCHC 34 % (32-34) 05/09/16 14:24 RDW 20.2 % (13.2-15.2) H 05/09/16 14:24 Plt Count 167 K/mm3 (140-440) 05/09/16 14:24 Lymph % (Auto) 26.4 % (13.4-35.0) 05/09/16 14:24 [place] % (Auto) 7.8 % (0.0-7.3) H 05/09/16 14:24 Eos % (Auto) 0.9 % (0.0-4.3) 05/09/16 14:24 Baso % (Auto) 0.4 % (0.0-1.8) 05/09/16 14:24 Lymph # 0.9 K/mm3 (1.2-5.4) L 05/09/16 14:24 [place] # 0.3 K/mm3 (0.0-0.8) 05/09/16 14:24 Eos # 0.0 K/mm3 (0.0-0.4) 05/09/16 14:24 Baso # 0.0 K/mm3 (0.0-0.1) 05/09/16 14:24 Add Manual Diff Complete 05/08/16 14:50 Total Counted 100 05/08/16 14:50 Seg Neutrophils % 64.5 % (40.0-70.0) 05/09/16 14:24 Seg Neuts % (Manual) 68.0 % (40.0-70.0) 05/08/16 14:50 Band Neutrophils % 0 % 05/08/16 14:50 Lymphocytes % (Manual) 23.0 % (13.4-35.0) 05/08/16 14:50 Reactive Lymphs % (Man) 0 % 05/08/16 14:50 Monocytes % (Manual) 7.0 % (0.0-7.3) 05/08/16 14:50 Eosinophils % (Manual) 2.0 % (0.0-4.3) 05/08/16 14:50 Basophils % (Manual) 0 % (0.0-1.8) 05/08/16 14:50 Metamyelocytes % 0 % 05/08/16 14:50 Myelocytes % 0 % 05/08/16 14:50 Promyelocytes % 0 % 05/08/16 14:50 Blast Cells % 0 % 05/08/16 14:50 Nucleated RBC % 1.0 % (0.0-0.9) H 05/08/16 14:50 Seg Neutrophils # 2.3 K/mm3 (1.8-7.7) 05/09/16 14:24 Seg Neutrophils # Man 2.0 K/mm3 (1.8-7.7) 05/08/16 14:50 Band Neutrophils # 0.0 K/mm3 05/08/16 14:50 Lymphocytes # (Manual) 0.7 K/mm3 (1.2-5.4) L 05/08/16 14:50 Abs React Lymphs (Man) 0.0 K/mm3 05/08/16 14:50 Monocytes # (Manual) 0.2 K/mm3 (0.0-0.8) 05/08/16 14:50 Eosinophils # (Manual) 0.1 K/mm3 (0.0-0.4) 05/08/16 14:50 Basophils # (Manual) 0.0 K/mm3 (0.0-0.1) 05/08/16 14:50 Metamyelocytes # 0.0 K/mm3 05/08/16 14:50 Myelocytes # 0.0 K/mm3 05/08/16 14:50 Promyelocytes # 0.0 K/mm3 05/08/16 14:50 Blast Cells # 0.0 K/mm3 05/08/16 14:50 WBC Morphology Not Reportable 05/08/16 14:50 Hypersegmented Neuts Not Reportable 05/08/16 14:50 Hyposegmented Neuts Not Reportable 05/08/16 14:50 Hypogranular Neuts Not Reportable 05/08/16 14:50 Smudge Cells Not Reportable 05/08/16 14:50 Toxic Granulation Not Reportable 05/08/16 14:50 Toxic Vacuolation Not Reportable 05/08/16 14:50 Dohle Bodies Not Reportable 05/08/16 14:50 Pelger-Huet Anomaly Not Reportable 05/08/16 14:50 Angel Rods Not Reportable 05/08/16 14:50 Platelet Estimate Consistent w auto 05/08/16 14:50 Clumped Platelets Not Reportable 05/08/16 14:50 Plt Clumps, EDTA Not Reportable 05/08/16 14:50 Large Platelets Not Reportable 05/08/16 14:50 Giant Platelets Not Reportable 05/08/16 14:50 Platelet Satelliting Not Reportable 05/08/16 14:50 Plt Morphology Comment Not Reportable 05/08/16 14:50 RBC Morphology Not Reportable 05/08/16 14:50 Dimorphic RBCs Yes 05/08/16 14:50 Polychromasia Not Reportable 05/08/16 14:50 Hypochromasia Not Reportable 05/08/16 14:50 Poikilocytosis 1+ 05/08/16 14:50 Anisocytosis 1+ 05/08/16 14:50 Microcytosis Not Reportable 05/08/16 14:50 Macrocytosis Not Reportable 05/08/16 14:50 Spherocytes Not Reportable 05/08/16 14:50 Pappenheimer Bodies Not Reportable 05/08/16 14:50 Sickle Cells Not Reportable 05/08/16 14:50 Target Cells Not Reportable 05/08/16 14:50 Tear Drop Cells Few 05/08/16 14:50 Ovalocytes 1+ 05/08/16 14:50 Helmet Cells Not Reportable 05/08/16 14:50 [place] Bodies Not Reportable 05/08/16 14:50 [place] Rings Not Reportable 05/08/16 14:50 [place] Cells Not Reportable 05/08/16 14:50 Bite Cells Not Reportable 05/08/16 14:50 Crenated Cell Not Reportable 05/08/16 14:50 Elliptocytes Not Reportable 05/08/16 14:50 Acanthocytes (Spur) Not Reportable 05/08/16 14:50 Rouleaux Not Reportable 05/08/16 14:50 Hemoglobin C Crystals Not Reportable 05/08/16 14:50 Schistocytes Few 05/08/16 14:50 Malaria parasites Not Reportable 05/08/16 14:50 [place] Bodies Not Reportable 05/08/16 14:50 Hem Pathologist Commnt No 05/08/16 14:50 Sodium 139 mmol/L (137-145) 05/09/16 14:24 Potassium 4.2 mmol/L (3.6-5.0) 05/09/16 14:24 Chloride 93.8 mmol/L (98-107) L 05/09/16 14:24 Carbon Dioxide 23 mmol/L (22-30) 05/09/16 14:24 Anion Gap 26 mmol/L 05/09/16 14:24 BUN 47 mg/dL (9-20) H 05/09/16 14:24 Creatinine 8.1 mg/dL (0.8-1.5) H 05/09/16 14:24 Estimated GFR 8 ml/min 05/09/16 14:24 BUN/Creatinine Ratio 5.80 % 05/09/16 14:24 Glucose 138 mg/dL (75-100) H 05/09/16 14:24 POC Glucose 101 (70-105) 05/10/16 06:27 Calcium 9.2 mg/dL (8.4-10.2) 05/09/16 14:24 Total Bilirubin 0.3 mg/dL (0.1-1.2) 05/07/16 05:19 AST 9 units/L (5-40) 05/07/16 05:19 ALT 5 units/L (7-56) L 05/07/16 05:19 Alkaline Phosphatase 188 units/L (35-129) H 05/07/16 05:19 Total Protein 6.4 g/dL (6.3-8.2) 05/07/16 05:19 Albumin 3.7 g/dL (3.9-5) L 05/07/16 05:19 Albumin/Globulin Ratio 1.4 % 05/07/16 05:19 PTH Intact 1205 pg/mL (15-65) H 05/08/16 14:55
--- NOTE | 2016-05-10 14:00 | Nuclear Medicine Report ---
BONE SCAN: After injection of isotope, gamma camera imaging of the bony system was done. There is a normal uptake of isotope throughout the bony structures without areas of significantly increased or decreased uptake. Normal uptake in the urinary system is seen. IMPRESSION: Normal bone scan.
[2016-05-10] MEDS: NORCO 5/325 PO PRN (15:42)
--- NOTE | 2016-05-10 16:13 | Progress Note ---
Assessment and Plan - Patient Problems (1) Abnormal CT scan, lumbar spine Current Visit: Yes Status: Acute Plan to address problem: Continue with symptomatic treatment, doubt lytic lesions or secondary to multiple myeloma. 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 (2) Unable to walk Current Visit: Yes Status: Acute Plan to address problem: Leg thickness,? Neuropathy, cord-root compression. Had epidurals at [facility]. Advised continue symptomatic treatment, will brace the knee as ordered to prevent a fall. Neurology consult to evaluate for quad weakness, neuropathy versus peripheral nerve compression/root compression. May be done as an outpatient basis. Maybe discharge and medically stable, followup with his treating physician [facility] on discharge. Subjective Principal diagnosis: esrd Objective Vital signs: Vital Signs - 12hr 05/10/16 08:14 Temperature 97.7 F Pulse Rate [ 56 L Right Radial] Respiratory 20 Rate Blood Pressure 184/88 [Right Arm] O2 Sat by Pulse 100 Oximetry - Labs CBC & BMP: 05/09/16 14:24 05/09/16 14:24 Labs: Abnormal lab results 05/09/16 05/09/16 05/10/16 Range/Units 16:54 22:47 11:39 POC Glucose 122 H 120 H 141 H (70-105)
[2016-05-10 17:18] LABS: Basophils % (Auto) 0.4 % (0.0-1.8); Eosinophils % (Auto) 1.1 % (0.0-4.3); Hematocrit 23.5 % (35.5-45.6); Hemoglobin 7.8 gm/dl (11.8-15.2); Mean Corpuscular HGB Conc 33 % (32-34); Mean Corpuscular Hemoglobin 28 pg (28-32); Mean Corpuscular Volume 85 fl (84-94); Platelet Count 163 K/mm3 (140-440); Red Blood Count 2.76 M/mm3 (3.65-5.03); White Blood Count 2.9 K/mm3 (4.5-11.0)
[2016-05-10 17:23] LABS: BUN/Creatinine Ratio 5.6; Calcium 8.2 mg/dL (8.4-10.2); Phosphorous 6.6 mg/dL (2.5-4.5)
[2016-05-10 17:24] LABS: Chloride 95.4 mmol/L (98-107); Potassium 4.9 mmol/L (3.6-5.0); Red Cell Distribution Width 20.9 % (13.2-15.2)
[2016-05-10] MEDS: LONITEN PO SCH (17:46)
[2016-05-10] MEDS: SENOKOT PO SCH (22:53)
[2016-05-10] MEDS: COREG PO SCH (22:54)
--- NOTE | 2016-05-11 08:40 | Progress Note ---
Assessment and Plan End-stage renal disease currently in maintenance hemodialysis patient is tolerated dialysis treatment well He is currently being dialyzed on Tuesday as scheduled, patient say that he is not sure if he can go homeas he is afraid of another fall Depression with suicidal ideation; patient is doing much better n my opinion will benefit from psychiatric evaluation as well Generalized deconditioning weakness back pain and multiple falls patient in my opinion is unsafe for discharge to his home where he has fallen multiple times Back pain with lytic lesions to be seen and followed by; in my opinion hematology orthopedics follow-up on immunofixation Anemia and end-stage renal disease currently hemoglobin is only 7.8 patient will need packed red blood cell transfusion he is also leukopenic and should be seen by hematology likely may require a bone marrow biopsy, malnutrition risk high consider high-protein diet Evidence of demineralization of the spine and back evident on CT scan Patient's list of home medication has not been consolidated yet Current dialysis access has been working well Patient will need hemodialysis with packed red blood cell transfusion and erythropoietin We'll continue to follow make recommendation from renal standpoint Subjective Principal diagnosis: esrd Interval history: Patient was seen today for follow-up on multiple renal related issues Events of 24 hours vitals labs intake output medications were reviewed Interdisciplinary Notes were also reviewed patient say that he is still very weak to walk needs to have back pain afraid of fall Patient denies any complaints of chest pain pressure or shortness of breath Objective - Vital Signs Vital signs: Vital Signs - 12hr 05/10/16 05/10/16 05/10/16 22:00 22:54 23:00 Temperature 98.0 F Pulse Rate 70 Pulse Rate [ 70 68 Right Radial] Respiratory 20 18 Rate Blood Pressure 120/70 Blood Pressure 124/61 [Right Arm] O2 Sat by Pulse 99 Oximetry - General Appearance General appearance: appears stated age EENT: mucous membranes moist Neck: no JVD Respiratory: Present: Clear to Ascultation (no crackles rales wheezes) Cardiology: regular (S1 and S2 normal) Gastrointestinal: normal (soft nontender abdomen) Integumentary: other (no edema at this time) - Lab 05/10/16 16:05 05/10/16 16:05 Most recent lab results Calcium 8.2 mg/dL (8.4-10.2) L 05/10/16 16:05 Phosphorus 6.6 mg/dL (2.5-4.5) H 05/10/16 16:05
[2016-05-11] MEDS ORDERED: HEMOCYTE PLUS PO SCH (10:00)
[2016-05-11] MEDS: COREG PO SCH ×2 (10:01→22:45)
[2016-05-11] MEDS: LONITEN PO SCH (10:02)
[2016-05-11] MEDS: PEPCID PO SCH ×2 (10:03→22:46)
[2016-05-11] MEDS: SENSIPAR PO SCH (10:03)
--- NOTE | 2016-05-11 10:36 | Discharge Summary ---
Providers - Providers Date of Admission: 05/06/16 09:55 Date of discharge: 05/11/16 Attending physician: BARBY SAMUEL 05/06/16 10:11 Consult to Physician [CONS] Urgent Consulting Provider: BELINDA GARRIDO Reason For Exam: renal failure Notified:: yes 05/06/16 15:26 Consult to Physician [CONS] Routine Consulting Provider: MANSOOR SANDERS V Reason For Exam: lytic lesions in the spine Place consult to:: DR. SANDERS Notified:: DR. SANDERS Phone number called:: IN HOUSE Was contact made?: Yes If yes, spoke with:: DR. SANDERS Time called:: 09:28 Comment:: PAT NOTIFIED 05/07/16 09:41 Physical Therapy Evaluation and Treat [CONS] Routine Comment: walker ? Reason For Exam: djd spine/ leg weekness 05/07/16 15:13 Consult to Case Management [CONS] Routine Services Needed at Discharge: Other Notified:: COPY GIVEN TO CM Additional Physician Instructions: subacute rehab vs snf placement 05/11/16 07:50 Consult to Physician [CONS] Routine Consulting Provider: ALIYA MARTINEZ Reason For Exam: lytic lesions in the lumbar spine Place consult to:: DR. MARTINEZ Notified:: OFFICE Phone number called:: [phone] Was contact made?: Yes If yes, spoke with:: ARMAND Stiles called:: 09:11 Comment:: PAT NOTIFIED Primary care physician: [facility] Hospitalization Reason for admission: fall. weakness Condition: Fair Pertinent studies: CT lumbar spine- Osteoporosis; genitalia findings. Scattered lucent lesions in the lumbar region. This may be secondary to severe bone demineralization and not multiple myeloma. Hospital course: Mr. Lyndon freitas is a 66-year-old gentleman who presented to the emergency room with weakness and fall. He was also noted to have lytic lesions on his spine. Apparently these were worked up at [facility] before. 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 Outpatient follow up recommended by orthopedic; for outpatient neurology evaluation. conditon at discharge Disposition: DC/[place] SNF W [facility] Time spent for discharge: 32 minutes - Discharge Diagnoses (1) Abnormal CT scan, lumbar spine Status: Acute (2) Diabetes type 2, uncontrolled Status: Acute Qualifiers: Diabetes mellitus complication status: D Diabetes mellitus complication detail: D Diabetic retinopathy severity: D Diabetes mellitus macular edema: D Diabetes mellitus terminal carman insulin use: D Chronic kidney disease stage: C (3) ESRD (end stage renal disease) Status: Acute (4) Hypertension Status: Acute Qualifiers: Hypertension type: H (5) Unable to walk Status: Acute Exam - Constitutional Vitals: Temp Pulse Resp BP Pulse Ox 98.2 F 66 16 118/60 98 05/11/16 07:30 05/11/16 07:30 05/11/16 07:30 05/11/16 10:01 05/11/16 07:30 Plan Activity: advance as tolerated, fall precautions Diet: low salt, renal Additional Instructions: Need to follow up with neurologist for evaluation of weakness in legs as an outpatient; F/u PCP in the SNF Follow up with: ALIYA MARTINEZ DO [Staff Physician] - 7 Days (Evaluation for lytic lesion in spine )
[2016-05-11] MEDS: ISOPTO TEARS 0.5% OU PRN (11:35)
--- NOTE | 2016-05-11 14:37 | Progress Note ---
Assessment and Plan Assessment and plan: 1. Abnormal CT scan/lytic lesions. Patient was told by his [facility] physician that he had some lytic lesions in his lumbar spine. Patient state that he was told that it was not cancerous. Work up for myeloma/prostate ca etc-- demineralization per ct--daughter states secondary to ESRD. SPEP, immunofixation and PSA studies pending. F/U Nuclear bone scan today. For hematology consult; will get records from [facility] 2. Anemia /leukopenia- consult hematology 3. ESRD. Continue hemodialysis per nephrology. 4. Hypertension. Continue antihypertensives medications. 5 Diabetes mellitus type II. Continue Accu-Cheks and sliding scale regular regular insulin. 6. 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 Chronic kidney disease stage: C (3) ESRD (end stage renal disease) Current Visit: Yes Status: Acute (4) Hypertension Current Visit: Yes Status: Acute Qualifiers: Hypertension type: H (5) Unable to walk Current Visit: Yes Status: Acute History Interval history: f/u lytic lesions on spine; weakness Patient seen at the bedside; no complaints; Hospitalist Physical - Constitutional Vitals: Temp Pulse Resp BP Pulse Ox 98.2 F 66 16 118/60 98 05/11/16 07:30 05/11/16 07:30 05/11/16 07:30 05/11/16 10:01 05/11/16 07:30 General appearance: Present: no acute distress - EENT Eyes: Present: PERRL, EOM intact. Absent: scleral icterus, conjunctival injection ENT: hearing intact, clear oral mucosa, no oropharyngeal erythema, no poor dentition - Neck Neck: Present: supple, normal ROM. Absent: enlarged thyroid, masses or JVD - Respiratory Respiratory effort: normal Respiratory: bilateral: diminished, negative: rales, rhonchi, wheezing - Cardiovascular Rhythm: regular Heart Sounds: Present: S1 & S2, gallop - Extremities Extremities: no ischemia, pulses intact, No edema Peripheral Pulses: within normal limits - Abdominal General gastrointestinal: soft, non-tender, non-distended, normal bowel sounds - Integumentary Integumentary: Present: clear - Psychiatric Psychiatric: appropriate mood/affect, intact judgment & insight - Neurologic Neurologic: CNII-XII intact Results - Labs CBC & Chem 7: 05/10/16 16:05 05/10/16 16:05 Labs: Laboratory Last Values WBC 2.9 K/mm3 (4.5-11.0) L 05/10/16 16:05 RBC 2.76 M/mm3 (3.65-5.03) L 05/10/16 16:05 Hgb 7.8 gm/dl (11.8-15.2) L 05/10/16 16:05 Hct 23.5 % (35.5-45.6) L 05/10/16 16:05 MCV 85 fl (84-94) 05/10/16 16:05 MCH 28 pg (28-32) 05/10/16 16:05 MCHC 33 % (32-34) 05/10/16 16:05 RDW 20.9 % (13.2-15.2) H 05/10/16 16:05 Plt Count 163 K/mm3 (140-440) 05/10/16 16:05 Lymph % (Auto) 28.4 % (13.4-35.0) 05/10/16 16:05 [place] % (Auto) 7.4 % (0.0-7.3) H 05/10/16 16:05 Eos % (Auto) 1.1 % (0.0-4.3) 05/10/16 16:05 Baso % (Auto) 0.4 % (0.0-1.8) 05/10/16 16:05 Lymph # 0.8 K/mm3 (1.2-5.4) L 05/10/16 16:05 [place] # 0.2 K/mm3 (0.0-0.8) 05/10/16 16:05 Eos # 0.0 K/mm3 (0.0-0.4) 05/10/16 16:05 Baso # 0.0 K/mm3 (0.0-0.1) 05/10/16 16:05 Add Manual Diff Complete 05/08/16 14:50 Total Counted 100 05/08/16 14:50 Seg Neutrophils % 62.7 % (40.0-70.0) 05/10/16 16:05 Seg Neuts % (Manual) 68.0 % (40.0-70.0) 05/08/16 14:50 Band Neutrophils % 0 % 05/08/16 14:50 Lymphocytes % (Manual) 23.0 % (13.4-35.0) 05/08/16 14:50 Reactive Lymphs % (Man) 0 % 05/08/16 14:50 Monocytes % (Manual) 7.0 % (0.0-7.3) 05/08/16 14:50 Eosinophils % (Manual) 2.0 % (0.0-4.3) 05/08/16 14:50 Basophils % (Manual) 0 % (0.0-1.8) 05/08/16 14:50 Metamyelocytes % 0 % 05/08/16 14:50 Myelocytes % 0 % 05/08/16 14:50 Promyelocytes % 0 % 05/08/16 14:50 Blast Cells % 0 % 05/08/16 14:50 Nucleated RBC % 1.0 % (0.0-0.9) H 05/08/16 14:50 Seg Neutrophils # 1.8 K/mm3 (1.8-7.7) 05/10/16 16:05 Seg Neutrophils # Man 2.0 K/mm3 (1.8-7.7) 05/08/16 14:50 Band Neutrophils # 0.0 K/mm3 05/08/16 14:50 Lymphocytes # (Manual) 0.7 K/mm3 (1.2-5.4) L 05/08/16 14:50 Abs React Lymphs (Man) 0.0 K/mm3 05/08/16 14:50 Monocytes # (Manual) 0.2 K/mm3 (0.0-0.8) 05/08/16 14:50 Eosinophils # (Manual) 0.1 K/mm3 (0.0-0.4) 05/08/16 14:50 Basophils # (Manual) 0.0 K/mm3 (0.0-0.1) 05/08/16 14:50 Metamyelocytes # 0.0 K/mm3 05/08/16 14:50 Myelocytes # 0.0 K/mm3 05/08/16 14:50 Promyelocytes # 0.0 K/mm3 05/08/16 14:50 Blast Cells # 0.0 K/mm3 05/08/16 14:50 WBC Morphology Not Reportable 05/08/16 14:50 Hypersegmented Neuts Not Reportable 05/08/16 14:50 Hyposegmented Neuts Not Reportable 05/08/16 14:50 Hypogranular Neuts Not Reportable 05/08/16 14:50 Smudge Cells Not Reportable 05/08/16 14:50 Toxic Granulation Not Reportable 05/08/16 14:50 Toxic Vacuolation Not Reportable 05/08/16 14:50 Dohle Bodies Not Reportable 05/08/16 14:50 Pelger-Huet Anomaly Not Reportable 05/08/16 14:50 Angel Rods Not Reportable 05/08/16 14:50 Platelet Estimate Consistent w auto 05/08/16 14:50 Clumped Platelets Not Reportable 05/08/16 14:50 Plt Clumps, EDTA Not Reportable 05/08/16 14:50 Large Platelets Not Reportable 05/08/16 14:50 Giant Platelets Not Reportable 05/08/16 14:50 Platelet Satelliting Not Reportable 05/08/16 14:50 Plt Morphology Comment Not Reportable 05/08/16 14:50 RBC Morphology Not Reportable 05/08/16 14:50 Dimorphic RBCs Yes 05/08/16 14:50 Polychromasia Not Reportable 05/08/16 14:50 Hypochromasia Not Reportable 05/08/16 14:50 Poikilocytosis 1+ 05/08/16 14:50 Anisocytosis 1+ 05/08/16 14:50 Microcytosis Not Reportable 05/08/16 14:50 Macrocytosis Not Reportable 05/08/16 14:50 Spherocytes Not Reportable 05/08/16 14:50 Pappenheimer Bodies Not Reportable 05/08/16 14:50 Sickle Cells Not Reportable 05/08/16 14:50 Target Cells Not Reportable 05/08/16 14:50 Tear Drop Cells Few 05/08/16 14:50 Ovalocytes 1+ 05/08/16 14:50 Helmet Cells Not Reportable 05/08/16 14:50 [place] Bodies Not Reportable 05/08/16 14:50 [place] Rings Not Reportable 05/08/16 14:50 [place] Cells Not Reportable 05/08/16 14:50 Bite Cells Not Reportable 05/08/16 14:50 Crenated Cell Not Reportable 05/08/16 14:50 Elliptocytes Not Reportable 05/08/16 14:50 Acanthocytes (Spur) Not Reportable 05/08/16 14:50 Rouleaux Not Reportable 05/08/16 14:50 Hemoglobin C Crystals Not Reportable 05/08/16 14:50 Schistocytes Few 05/08/16 14:50 Malaria parasites Not Reportable 05/08/16 14:50 [place] Bodies Not Reportable 05/08/16 14:50 Hem Pathologist Commnt No 05/08/16 14:50 Sodium 140 mmol/L (137-145) 05/10/16 16:05 Potassium 4.9 mmol/L (3.6-5.0) 05/10/16 16:05 Chloride 95.4 mmol/L (98-107) L 05/10/16 16:05 Carbon Dioxide 23 mmol/L (22-30) 05/10/16 16:05 Anion Gap 27 mmol/L 05/10/16 16:05 BUN 60 mg/dL (9-20) H 05/10/16 16:05 Creatinine 10.7 mg/dL (0.8-1.5) H 05/10/16 16:05 Estimated GFR 6 ml/min 05/10/16 16:05 BUN/Creatinine Ratio 5.60 % 05/10/16 16:05 Glucose 118 mg/dL (75-100) H 05/10/16 16:05 POC Glucose 117 (70-105) H 05/11/16 11:33 Calcium 8.2 mg/dL (8.4-10.2) L 05/10/16 16:05 Phosphorus 6.6 mg/dL (2.5-4.5) H 05/10/16 16:05 Total Bilirubin 0.3 mg/dL (0.1-1.2) 05/07/16 05:19 AST 9 units/L (5-40) 05/07/16 05:19 ALT 5 units/L (7-56) L 05/07/16 05:19 Alkaline Phosphatase 188 units/L (35-129) H 05/07/16 05:19 Total Protein 6.4 g/dL (6.3-8.2) 05/07/16 05:19 Albumin 3.7 g/dL (3.9-5) L 05/07/16 05:19 Albumin/Globulin Ratio 1.4 % 05/07/16 05:19 PTH Intact 1205 pg/mL (15-65) H 05/08/16 14:55
[2016-05-11] MEDS: NORCO 5/325 PO PRN (22:47)
[2016-05-11] MEDS: SENOKOT PO SCH (22:48)
--- NOTE | 2016-05-11 22:55 | Consultation ---
History of Present Illness - Reason for Consult Consult date: 05/11/16 Lumber lytic lesions. Requesting physician: BARBY SAMUEL - History of Present Illness Thank you for this consult, patient seen/examined, record/labs reviewed, case d/ w patient and his daughter.Kindly asked to see this patient who presented with syncope/ falls. w/up imaging reveals lytic lesions in the lumber region. hence this consult. As per him/daughter, he was seen at [facility] 1 month ago for same reason, had a bone bx, and was told it was negative for cancer. at the same time, he, and his daughter were told by some on site soil evaluator, that there was suspicion for some cancer.? he had childhood polio that was treated. These lesions may be due to renal dz, but will request for record from [facility], and do further w/u. Will hold off on repeat bone bx until record from [facility]. W/up should not delay his d/c, they can be done as out patient. I have given them my card. Past History Past Medical History: diabetes, dialysis, ESRD, hypertension, renal failure Past Surgical History: Other (av access placement) Social history: full code. denies: prescription drug abuse, IV drug use Family history: hypertension Medications and Allergies Allergies Allergy/AdvReac Type Severity Reaction Status Date / Time amoxicillin Allergy Swelling Verified 05/05/16 17:43 Penicillins Allergy Swelling Verified 05/05/16 17:43 Home Medications Medication Instructions Recorded Confirmed Last Taken Type Insulin Glargine [Lantus VIAL] 20 units SQ QHS 05/10/16 05/10/16 Unknown History Insulin Glargine [Lantus VIAL] 25 units SQ QDAY 05/10/16 05/10/16 Unknown History Carvedilol [Coreg] 12.5 mg PO BID tablet 05/11/16 Unknown Rx Cinacalcet [Sensipar] 30 mg PO QDAY tablet 05/11/16 Unknown Rx Famotidine [Pepcid] 10 mg PO BID tablet 05/11/16 Unknown Rx Fe Fumarate/FA/Mv, Min Comb#15 1 each PO QDAY capsule 05/11/16 Unknown Rx [Hemocyte Plus] Minoxidil [Loniten] 2.5 mg PO QDAY tablet 05/11/16 Unknown Rx Active Meds: Active Medications Acetaminophen (Tylenol) 650 mg PO Q4H PRN PRN Reason: Pain MILD(1-3)/Fever >100.5/RAMSEY Last Admin: 05/07/16 23:04 Dose: 650 mg Acetaminophen/Hydrocodone Bitart ([place] 5/325) 2 each PO Q6H PRN PRN Reason: Pain, Moderate (4-6) Last Admin: 05/10/16 15:42 Dose: 2 each Artificial Tears (Isopto Tears 0.5%) 2 drops OU Q4H PRN PRN Reason: Dry Eye(s) Last Admin: 05/11/16 11:35 Dose: 2 drops Carvedilol (Coreg) 12.5 mg PO BID [facility] Last Admin: 05/11/16 10:01 Dose: Not Given Cinacalcet (Sensipar) 30 mg PO QDAY [facility] Last Admin: 05/11/16 10:03 Dose: 30 mg Epoetin Ricco (Epogen) 20,000 unit IV MANNIE PRN PRN Reason: hemodialysis Last Admin: 05/10/16 19:35 Dose: 20,000 unit Famotidine (Pepcid) 10 mg PO BID [facility] Last Admin: 05/11/16 10:03 Dose: 10 mg Hydralazine HCl (Apresoline) 5 mg IV Q30MIN PRN PRN Reason: HTN SYS>180 AND MANNIE>100 Sodium Chloride (Nacl 0.9% 1000 Ml) 100 mls @ 999 mls/hr IV MANNIE PRN PRN Reason: Hypotension Metoclopramide HCl (Reglan) 10 mg PO Q6H PRN PRN Reason: Nausea And Vomiting Minoxidil (Loniten) 2.5 mg PO QDAY [facility] Last Admin: 05/11/16 10:02 Dose: Not Given Multivitamins/Iron (Hemocyte Plus) 1 each PO QDAY [facility] Last Admin: 05/11/16 10:05 Dose: 1 each Senna (Senokot) 17.2 mg PO QHS [facility] Last Admin: 05/10/16 22:53 Dose: 17.2 mg Review of Systems Constitutional: chronic pain Cardiovascular: syncope Musculoskeletal: low back pain Exam - Constitutional Vitals: Temp Pulse Resp BP Pulse Ox 98.3 F 70 18 120/60 98 05/11/16 16:36 05/11/16 16:36 05/11/16 16:36 05/11/16 16:36 02/14/17 07:30 General appearance: Present: mild distress, well-nourished - EENT Eyes: Present: PERRL ENT: hearing intact, clear oral mucosa - Neck Neck: Present: supple, normal ROM - Respiratory Respiratory effort: normal Respiratory: bilateral: CTA - Cardiovascular Heart Sounds: Present: S1 & S2. Absent: rub, click - Extremities Extremities: pulses symmetrical, No edema Peripheral Pulses: within normal limits - Abdominal General gastrointestinal: Present: soft, non-tender, non-distended, normal bowel sounds Male genitourinary: Present: deferred - Rectal Rectal Exam: deferred - Integumentary Integumentary: Present: clear, warm, dry - Musculoskeletal Musculoskeletal: gait normal, strength equal bilaterally - Psychiatric Psychiatric: appropriate mood/affect, intact judgment & insight - Neurologic Neurologic: CNII-XII intact, moves all extremities Results - Labs CBC & Chem 7: 05/10/16 16:05 05/10/16 16:05 Labs: Abnormal lab results 05/11/16 05/11/16 05/11/16 Range/Units 06:33 11:33 16:55 POC Glucose 134 H 117 H 137 H (70-105) 05/11/16 Range/Units 21:45 POC Glucose 207 H (70-105) Assessment and Plan - Patient Problems (1) Abnormal CT scan, lumbar spine Current Visit: Yes Status: Acute Plan to address problem: See notes above. (2) ESRD (end stage renal disease) Current Visit: Yes Status: Acute Plan to address problem: Follow renal service. (3) Unable to walk Current Visit: Yes Status: Acute Plan to address problem: agree with rehab/braces.
[2016-05-11 23:22] LABS: Albumin 3.9 g/dL (3.8-4.8); Gamma Globulin 1.2 g/dL (0.8-1.7)
--- NOTE | 2016-05-12 07:51 | Discharge Summary ---
Providers - Providers Date of Admission: 05/06/16 09:55 Date of discharge: 05/12/16 Attending physician: BARBY SAMUEL 05/06/16 10:11 Consult to Physician [CONS] Urgent Consulting Provider: BELINDA GARRIDO Reason For Exam: renal failure Notified:: yes 05/06/16 15:26 Consult to Physician [CONS] Routine Consulting Provider: MANSOOR SANDERS V Reason For Exam: lytic lesions in the spine Place consult to:: DR. SANDERS Notified:: DR. SANDERS Phone number called:: IN HOUSE Was contact made?: Yes If yes, spoke with:: DR. SANDERS Time called:: 09:28 Comment:: PAT NOTIFIED 05/07/16 09:41 Physical Therapy Evaluation and Treat [CONS] Routine Comment: walker ? Reason For Exam: djd spine/ leg weekness 05/07/16 15:13 Consult to Case Management [CONS] Routine Services Needed at Discharge: Other Notified:: COPY GIVEN TO CM Additional Physician Instructions: subacute rehab vs snf placement 05/11/16 07:50 Consult to Physician [CONS] Routine Consulting Provider: ALIYA MARTINEZ Reason For Exam: lytic lesions in the lumbar spine Place consult to:: DR. MARTINEZ Notified:: OFFICE Phone number called:: [phone] Was contact made?: Yes If yes, spoke with:: ARMAND Stiles called:: 09:11 Comment:: PAT NOTIFIED Primary care physician: CHAPLAIN RESIDENT Hospitalization Reason for admission: fall; unable to walk Condition: Fair Pertinent studies: CT lumbar spine-Osteoporosis; degenerative findings; scattered lucent lesions in the lumbar region. This may be secondary to severe bone demineralization and not multiple myeloma. Hospital course: Mr. Curry is a 66-year-old man who presented to the emergency room after having a fall when his walker broke. He was evaluated with CT scan of the lumbar spine showed lytic lesions. Apparently patient having previously worked up at [place] where he had a biopsy and was told that it was not cancerous. He was seen by the orthopedic surgeon while he was here and no further intervention was recommended except for brace for the knee. He was also seen by the oncologist while he was here and outpatient follow-up was recommended. Patient was also seen by the geophysical computer while he was here and had routine hemodialysis. Condition at discharge-stable 31 minutes spent preparing discharge Disposition: DC/TX SNF [facility] CERT - Discharge Diagnoses (1) Abnormal CT scan, lumbar spine Status: Acute (2) Diabetes type 2, uncontrolled Status: Acute Qualifiers: Diabetes mellitus complication status: D Diabetes mellitus complication detail: D Diabetic retinopathy severity: D Diabetes mellitus macular edema: D Diabetes mellitus terminal supervisor insulin use: D Chronic kidney disease stage: C (3) ESRD (end stage renal disease) Status: Acute (4) Hypertension Status: Acute Qualifiers: Hypertension type: H (5) Unable to walk Status: Acute Core Measure Documentation - Palliative Care Palliative Care/ Comfort Measures: Not Applicable - Core Measures Any of the following diagnoses?: none Exam - Constitutional Vitals: Temp Pulse Resp BP Pulse Ox 98.7 F 60 18 165/75 99 05/11/16 23:00 05/11/16 23:00 05/11/16 23:00 05/11/16 23:00 05/11/16 23:00 General appearance: Present: no acute distress, well-nourished - EENT Eyes: Present: PERRL, EOM intact. Absent: scleral icterus, conjunctival injection ENT: hearing intact, clear oral mucosa, no oropharyngeal erythema, no poor dentition - Neck Neck: Present: supple, normal ROM. Absent: enlarged thyroid, masses or JVD - Respiratory Respiratory effort: normal Respiratory: negative: diminished, rales, rhonchi, wheezing - Cardiovascular Rhythm: regular Heart Sounds: Present: S1 & S2. Absent: gallop - Extremities Extremities: no ischemia, pulses intact, pulses symmetrical - Abdominal General gastrointestinal: Present: soft, non-tender, non-distended, normal bowel sounds - Musculoskeletal Musculoskeletal: generalized weakness (especially in the lower extremities more so in the left lower extremity) - Psychiatric Psychiatric: appropriate mood/affect - Neurologic Neurologic: CNII-XII intact Plan Activity: advance as tolerated, fall precautions Diet: regular Special Instructions: physical therapy Durable Medical Equipment Needed Upon Discharge: other (brace the left lower extremity) Follow up with: ALIYA MARTINEZ DO [Staff Physician] - 7 Days (Evaluation for lytic lesion in spine )
[2016-05-12] MEDS: COREG PO SCH ×2 (09:04→15:40)
[2016-05-12] MEDS: LONITEN PO SCH (09:05)
--- NOTE | 2016-05-12 09:59 | Progress Note ---
Subjective Principal diagnosis: esrd Objective - Vital Signs Vital signs: Vital Signs - 12hr 05/11/16 05/11/16 05/11/16 22:00 22:45 23:00 Temperature 98.7 F Pulse Rate 80 Pulse Rate [ 72 60 Right Radial] Respiratory 20 18 Rate Blood Pressure 120/70 Blood Pressure 165/75 [Right Arm] O2 Sat by Pulse 97 99 Oximetry 05/12/16 08:00 Temperature 97.9 F Pulse Rate Pulse Rate [ 70 Right Radial] Respiratory 18 Rate Blood Pressure Blood Pressure 116/68 [Right Arm] O2 Sat by Pulse 99 Oximetry - Lab 05/10/16 16:05 05/10/16 16:05 Most recent lab results Calcium 8.2 mg/dL (8.4-10.2) L 05/10/16 16:05 Phosphorus 6.6 mg/dL (2.5-4.5) H 05/10/16 16:05
[2016-05-12] MEDS ORDERED: NORCO 5/325 ONE (10:56)
[2016-05-12] MEDS: NORCO 5/325 PO PRN (10:59)
--- NOTE | 2016-05-12 13:03 | XRay Report ---
METASTATIC BONE SURVEY: INDICATION: Lytic lesions. COMPARISON: None similar. Correlated to 05/06/[address] findings. FINDINGS: AP and lateral views of the skull, entire spine as also frontal projections of the chest, pelvis and bilateral humerus and femur obtained. Various vascular calcifications, including possible atherosclerotic in the left neck. Probable cholecystectomy clips. Penile prosthesis. Demineralized bones. Clear lungs. Mild lumbar and mid to lower thoracic spine degenerative spurring. Collapse/lytic nonvisualization of approximately 60-70% of T11 vertebral body superiorly, though somewhat mineralized/sclerotic portion remaining inferiorly noted. Approximately 1.8 cm L2 vertebral body lucency anteroinferiorly as well on the lateral view with a central/possibly sequestered 9 mm calcification. Lower lumbar facet arthropathy suspected. Subtle vague proximal femoral and humeral medullary lucencies. Subtle bilateral distal femoral metaphyseal medullary lucencies, approximately 2.2 cm on the right and approximately 1 cm on the left, also nonspecific. Subtle right humeral proximal medullary lucencies measuring up to approximately 2.2 cm also questioned. Edentulous jaw. Slight hyperostosis frontalis interna. Few surgical clips along the left arm medial soft tissues also noted. CONCLUSION: 1. Lytic T11 vertebral body involvement suspected, as detailed above. Anteroinferior lucency in L2 vertebral body also noted in this patient with suspected underlying renal failure. Renal osteodystrophy versus metastatic involvement remain in the differential considerations, amongst others. 2. Subtle/vague bilateral humeral and femoral medullary lucencies also nonspecific, not entirely excluded pathologic. 3. Various other incidental findings, including postsurgical and bony degenerative changes, amongst others, as above. Thank you for the opportunity to participate in this patient's care.
[2016-05-12] MEDS ORDERED: REGLAN PO PRN (14:59)
[2016-05-12 15:31] VITALS: BP 164/72
[2016-05-12] MEDS: PEPCID PO SCH (15:41)
[2016-05-12] MEDS: SENSIPAR PO SCH (15:41)
== END 2016-05-12 17:05 | DRG 682 ==
LOC: ED 16:36 → 3A 05-06 09:55
PROVIDERS: ADMIT Internal Medicine; ATTEND Hospitalist
PROC: 5A1D60Z (ICD-10-PCS; principal; 2016-05-07)
DX: I12.0 Hypertensive chronic kidney disease with stage 5 chronic kidney disease or end stage renal disease (principal); N18.6 End stage renal disease; N25.81 Secondary hyperparathyroidism of renal origin; R26.2 Difficulty in walking, not elsewhere classified; E11.22 Type 2 diabetes mellitus with diabetic chronic kidney disease; E11.65 Type 2 diabetes mellitus with hyperglycemia; N25.0 Renal osteodystrophy; D63.1 Anemia in chronic kidney disease; G89.29 Other chronic pain; Z86.73 Personal history of transient ischemic attack (TIA), and cerebral infarction without residual deficits; Z87.891 Personal history of nicotine dependence; Z88.0 Allergy status to penicillin; Z82.49 Family history of ischemic heart disease and other diseases of the circulatory system; Z99.2 Dependence on renal dialysis; Z91.81 History of falling
CPT/HCPCS: 36415; 70450; 72131; 77074; 78306; 80048; 80053; 82232; 82962; 83615; 83970; 84100; 84153; 84154; 84165; 85007; 85025; 85652; 86334; 93005; 93010; A9503; G8978-GP; G8979-GP; J0885; J7030